=== PATIENT | female | born 1960 | race Caucasian/White ===

== ENCOUNTER 2018-03-21 12:10 | Emergency (ER) | payer BC ==
--- NOTE | 2018-03-21 12:53 | Emergency Department Record ---
History of Present Illness - General Chief Complaint: Chest Pain Stated Complaint: DISCOMPORT LT SIDE /NECK //CHEST Time Seen by Provider: 03/21/18 12:45 Source: Patient Mode of Arrival: Ambulatory Limitations: No limitations - History of Present Illness Initial Comments: The patient is here with L neck, and shoulder pain which started acutely last evening about 14 hours ago at rest. The pain is a sharp aching pain that does radiate to the L jaw and chest. It is worse with deep breaths but there is no SOB, TORSTEN, or sweating with the pain. She has had L jaw pain off and on for some time and does have a dentist appointment for it tomorrow. She states the pain is not worse with exertion or bending or twisting and she has no hx of similar issues. The patient has no cardiac risk factors and no recent travel or leg pain. MD Complaint: Other Onset/Timin -: Hour(s) Onset: During rest Pain Location: Other Pain Radiation: Back Severity scale (1-10): 7 Quality: Sharp Improves With: Rest Worsens With: Inspiration Treatments Prior to Arrival: Other Treatment Prior to Arrival Comment:: Ibuprofen at 0200 this AM - Related Data Home Medications Medication Instructions Recorded Confirmed Last Taken No Home Med [NO HOME MEDS] 03/21/18 03/21/18 Unknown Allergies Allergy/AdvReac Type Severity Reaction Status Date / Time No Known Drug Allergies Allergy Verified 03/21/18 12:17 Travel Screening - Travel/Exposure Within Last 30 Days Have you traveled within the last 30 days?: No - Travel/Exposure Within Last Year Have you traveled outside the [place] in the last year?: Yes Location Detail:: [place] - Additonal Travel Details Have you been exposed to anyone with a communicable illness?: No - Travel Symptoms Symptom Screening: None Review of Systems Constitutional: Denies: Chills, Fever Eyes: Denies: Eye discharge ENT: Denies: Congestion Respiratory: Denies: Cough, Dyspnea Past Medical History - SOCIAL HISTORY Smoking Status: Never smoker Alcohol Use: Occasional Drug Use: None - RESPIRATORY Hx Respiratory Disorders: No - CARDIOVASCULAR Hx Cardio Disorders: No - NEURO Hx Neuro Disorders: No - GI Hx GI Disorders: No - Hx Genitourinary Disorders: No - ENDOCRINE Hx Endocrine Disorders: No - MUSCULOSKELETAL Hx Musculoskeletal Disorders: No - PSYCH Hx Psych Problems: No - HEMATOLOGY/ONCOLOGY Hx Hematology/Oncology Disorders: No Family Medical History Any Significant Family History?: No Physical Exam - General General Appearance: Alert, Oriented x3, Cooperative, No acute distress - Head Head exam: Atraumatic, Normocephalic, Normal inspection - Eye Eye exam: Normal appearance, PERRL, EOMI - Neck Neck exam: Normal inspection, Full ROM. negative: Tenderness - Respiratory Respiratory exam: Normal lung sounds bilaterally. negative: Chest wall tenderness, Rales, Respiratory distress - Cardiovascular Cardiovascular Exam: Regular rate, Normal rhythm, Normal heart sounds - GI/Abdominal GI/Abdominal exam: Soft, Normal bowel sounds. negative: Tenderness - Extremities Extremities exam: Normal inspection, Full ROM, Normal capillary refill. negative: Calf tenderness, Pedal edema, Tenderness - Neurological Neurological exam: Alert, Normal gait. negative: Abnormal gait, Motor sensory deficit - Psychiatric Psychiatric exam: negative: Anxious, Depressed - Skin Skin exam: negative: Rash Course Vital Signs 03/21/18 12:22 Temperature 98.5 F Pulse Rate 99 H Respiratory 16 Rate Blood Pressure 122/86 Pulse Ox 100 - Reevaluation(s) Reevaluation #1: The patient is doing much better now. Her pain is much improved and she is resting comfortably. I did discuss the plan with her. We will order a chest CT due to the persistent pain. 03/21/18 14:10 Reevaluation #2: The patient is doing very well at this time and only has mild pain. She denies any SOB or TORSTEN. I did explain to her that her workup is all neg here in the ER. Due to no specific cause being found for the pain I did recommend hospital admission to R/O [place] and a EST and cardiac echo. I also explained the risks of leaving which include going home and having an [place], stroke, being disabled and dying. The patient understands and accepts the risks and understands we cannot be held liable for NOT doing the tests. She presently has proper decision making capacity and clearly understands and accepts the risks of leaving. She will be referred to Dr. Mcclain in the Specialty clinic for further testing. 03/21/18 15:58 Medical Decision Making - Data Complexity MDM Data: Labs Ordered and/or Reviewed, X-Ray Ordered and/or Reviewed, EKG Ordered and/or Reviewed - Lab Data Result diagrams: 03/21/18 12:30 03/21/18 12:30 - EKG Data -: EKG Interpreted by Me EKG: No Acute Changes, Normal EKG (RsR' pattern V1-3. Neg for ischemia.) - Radiology Data Radiology results: Report reviewed (CXR: neg Chest CT: Neg for PE or dissection. Mildly ectatic aorta. ) Disposition Disposition: Discharge Clinical Impression: Chest pain, atypical Disposition: Home, Self-Care Condition: (2) Stable Instructions: Chest Pain (ED) Additional Instructions: Please take Tylenol or Motrin for pain and rest. Please see Dr. Mcclain in the Specialty Clinic later this week. Please return to the ER for any worsening symptoms, pain, trouble breathing or fever. Referrals: [facility] Specialty Clinics [Provider Group] Forms: Patient Portal Access Time of Disposition: 15:56 Quality - Quality Measures Quality Measures: N/A - Blood Pressure Screening View Details: Yes Does Patient Have Any of the Following: No Blood Pressure Classification: Normal BP Reading Systolic Measurement: 107 Diastolic Measurement: 72 Screening for High Blood Pressure: < Normal BP, F/U Not Required > [G8783]
[2018-03-21 13:07] LABS: BASO % 0.2 % (0-6); EOS % 0.2 % (0-6); GRAN % 62.5 % (47-80); HEMATOCRIT 40.2 % (35.0-47.0); HEMOGLOBIN 13.1 gm/dl (11.6-16.0); MEAN CELL VOLUME 91.6 fl (81-97); MEAN CORPUSCULAR HEMOGLOBIN 29.8 pg (27-33); MEAN CORPUSCULAR HGB CONC 32.6 g/dl (32-36); MEAN PLATELET VOLUME 9.3 fl (7.4-10.4); MONO % 12.1 % (0-9); PLATELET COUNT 344 K/uL (130-400); RED BLOOD COUNT 4.39 M/uL (3.80-5.40); RED CELL DISTRIBUTION WIDTH 13.6 % (11.5-14.5); WHITE BLOOD COUNT W/O DIFF 10.8 K/uL (4.2-12.2)
[2018-03-21 13:18] LABS: BLOOD UREA NITROGEN 8 mg/dL (6-20); CREATININE 0.5 mg/dL (0.5-0.9); EST GLOMERULAR FILTRATION RATE > 60 mL/min
[2018-03-21] MEDS ORDERED: KETOROLAC 30 MG/ML VIAL IVP ONE (13:18)
[2018-03-21 13:19] LABS: TOTAL PROTEIN 7.3 g/dL (6.6-8.7)
[2018-03-21 13:21] LABS: GLUCOSE,RANDOM 102 mg/dL (74-109)
[2018-03-21 13:23] LABS: ALB/GLOB RATIO 1.7 (1.1-1.8); ALBUMIN 4.6 g/dL (4.0-5.0); ALKALINE PHOSPHATASE 70 U/L (35-104); ALT/SGPT 17 U/L (<33); AST/SGOT 22 U/L (10.0-35.0); CREATINE PHOSPHOKINASE 95 U/L (26-192); PARTIAL THROMBOPLASTIN TIME 27.3 SECONDS (24.5-39.1); PROTHROMBIN TIME (PATIENT) 10.2 SECONDS (9.5-12.1)
[2018-03-21 13:25] LABS: CKMB 2.8 ng/mL (<3.77)
[2018-03-21] MEDS ORDERED: 0.9 % SODIUM CHLORIDE 1,000 ML BAG IV ONE (13:55)
[2018-03-21] MEDS ORDERED: ACETAMINOPHEN 1,000 MG/100 ML BTL IVPB ONE (13:55)
--- NOTE | 2018-03-23 05:52 | RADIOLOGY REPORT ---
DATE: 03/21/2018. EXAM: TWO-VIEW CHEST RADIOGRAPH. HISTORY: Left-sided neck and shoulder pain for greater than one day. TECHNIQUE: PA and lateral views of the chest. COMPARISON: None. FINDINGS: The cardiac silhouette is within normal size limits. The pulmonary vasculature is nondilated. No focal consolidation, pleural effusion, or pneumothorax. IMPRESSION: NO ACUTE LUNG FINDINGS. JOB NUMBER: [id number] MTDD
--- NOTE | 2018-03-23 06:20 | CT ANGIOGRAM REPORT ---
DATE: 03/21/2018. EXAM: CT ANGIOGRAM OF THE CHEST WITH CONTRAST. HISTORY: UPPER CHEST PAIN, DYSPNEA. TECHNIQUE: Routine CT angiographic images of the chest were obtained following the intravenous administration of contrast; amount and type of contrast in the medical record. Also 3D MIP images were obtained for further assessment. COMPARISON: None. FINDINGS: The heart is not enlarged. No pericardial effusion. There is ectasia of the ascending aorta measuring 3.5 x 3.4 cm at the level of the right main pulmonary artery on this non-gated examination. No mediastinal or hilar lymph node enlargement. The aorta enhances normally with contrast. Suboptimal bolus timing with this assessment for small peripheral pulmonary embolus. No large central pulmonary embolus identified. There is mild bibasilar atelectasis. The lungs are without focal consolidation or pleural effusion. The visualized upper abdomen is unremarkable. No acute osseous abnormality. IMPRESSION: 1. SUBOPTIMAL BOLUS TIMING LIMITS ASSESSMENT FOR SMALL PERIPHERAL PULMONARY EMBOLUS. NO LARGE CENTRAL PULMONARY EMBOLUS IDENTIFIED. 2. ASCENDING AORTA ECTASIA. JOB NUMBER: [id number] MTDD
== END 2018-03-21 16:21 | disposition home or self-care (01) ==
LOC: ER 12:10
DX: R07.89 Other chest pain (principal); M54.2 Cervicalgia; R06.00 Dyspnea, unspecified; M25.512 Pain in left shoulder
CPT/HCPCS: 71046; 71275; 80053; 82550; 82553; 84484; 85025; 85379; 85610; 85730; 93005; 93010; 96374; 96375; 99284; J1885; J7030

== ENCOUNTER 2019-03-19 22:52 | Emergency (ER) | payer BC ==
[2019-03-19] MEDS ORDERED: 0.9 % SODIUM CHLORIDE 1000ML 1,000 ML IV ONE (23:00)
--- NOTE | 2019-03-19 23:06 | Emergency Department Record ---
History of Present Illness - General Stated Complaint: FALL Time Seen by Provider: 03/19/19 22:56 Source: Patient, Family Mode of Arrival: Wheelchair Limitations: Altered mental status - History of Present Illness Initial Comments: 58 yo female presents after a fall. She fell on wooden slippery steps. The patient does not recall the event. Her friend that was with her states the she did not witness the actual fall but she saw her at the bottom of 3-4 steps immediately. She did hit her head, side, wrist and hand. She answers questions appropriately but does not have a memory of the event. She is not on blood thinners. No numbness or weakness. No vision changes. No preceding symptoms. The friend states the steps are slippery and several people have slipped on them in the past. MD Complaint: Fall -: Minutes(s) Fall From: Down stairs (#) (3-4) When Fall Occurred: Just prior to arrival Fall Witnessed: No Place Fall Occurred: Home Loss of Consciousness: Unsure Prolonged Down Time?: No Symptoms Prior to Fall: None Location: Head Severity: Moderate Quality: Aching Context: Tripped/slipped Associated Symptoms: Denies - Matt Coma Scale Eye Response: (4) Open spontaneously Motor Response: (6) Obeys commands Verbal Response: (5) Oriented Matt Total: 15 - Related Data Allergies Allergy/AdvReac Type Severity Reaction Status Date / Time No Known Drug Allergies Allergy Unverified 08/11/18 08:14 Review of Systems Constitutional: Denies: Chills, Fever, Malaise Eyes: Denies: Eye discharge, Eye pain, Vision change ENT: Denies: Congestion, Dental pain, Throat pain Respiratory: Denies: Cough, Dyspnea Cardiovascular: Denies: Chest pain, Palpitations, Syncope Endocrine: Denies: Fatigue Gastrointestinal: Denies: Abdominal pain, Diarrhea, Nausea, Vomiting Genitourinary: Denies: Dysuria, Urgency Musculoskeletal: Reports: Arthralgia Skin: Reports: Bruising Neurological: Reports: Confusion. Denies: Abnormal gait, Headache, Numbness, Paresthesias, Seizure, Tingling, Tremors, Vertigo, Weakness Psychiatric: Denies: Anxiety Hematological/Lymphatic: Denies: Easy bleeding, Easy bruising Past Medical History - SOCIAL HISTORY Smoking Status: Never smoker Drug Use: None - RESPIRATORY Hx Respiratory Disorders: No - CARDIOVASCULAR Hx Cardio Disorders: No - NEURO Hx Neuro Disorders: No - GI Hx GI Disorders: No - Hx Genitourinary Disorders: No - ENDOCRINE Hx Endocrine Disorders: No - MUSCULOSKELETAL Hx Musculoskeletal Disorders: No - PSYCH Hx Psych Problems: No - HEMATOLOGY/ONCOLOGY Hx Hematology/Oncology Disorders: No Physical Exam - General General Appearance: Alert, Oriented x3, Cooperative, Other (The patient is in no distress. She is oriented X's 3. She does not recall the fall however.) Limitations: Altered mental status - Head Head exam: negative: Atraumatic, Normal inspection Head exam detail: Abrasion, Contusion Image of Face/Head: 1 - contusion - Eye Eye exam: PERRL, EOMI, Periorbital swelling. negative: Normal appearance, Conj unctival injection, Nystagmus - ENT ENT exam: Normal exam, Mucous membranes moist, Normal orophraynx, TM's normal bilaterally Ear exam: Normal external inspection Nasal Exam: Normal inspection Mouth exam: Normal external inspection Teeth exam: Normal inspection Throat exam: Normal inspection - Neck Neck exam: Normal inspection, Full ROM. negative: Tenderness - Respiratory Respiratory exam: Normal lung sounds bilaterally. negative: Accessory muscle use, Chest wall tenderness, Decreased breath sounds, Prolonged expiratory, Rhonchi, Stridor, Wheezes - Cardiovascular Cardiovascular Exam: Regular rate, Normal rhythm, Normal heart sounds Peripheral Pulses: 2+: Radial (R), Radial (L) - GI/Abdominal GI/Abdominal exam: Soft, Normal bowel sounds, Other (abrasion over the right flank but non tender). negative: Distended, Guarding, Rebound, Rigid, Tend erness - Rectal Rectal exam: Deferred - exam: Deferred - Extremities Extremities exam: Full ROM, Joint swelling, Tenderness. negative: Normal inspection Image of Full Body: 1 - abrasion, soft non tender 2 - tenderness and swelling 4-5 th MCP area, intact skin, full ROM 3 - normal inspection, tender with ROM Image of Hand: 1 - mild bruising, tenderness and swelling 2 - normal inspection, tender to palpation - Back Back exam: Denies: Normal inspection (Lower right lateral flank abrasion), CVA tenderness (R), CVA tenderness (L), Paraspinal tenderness, Tenderness, Vertebral tenderness - Neurological Neurological exam: Alert, CN II-XII intact, Normal gait, Oriented X3. negative: Altered, Motor sensory deficit - Psychiatric Psychiatric exam: Normal affect, Normal mood. negative: Agitated, Anxious - Skin Skin exam: Abrasion Course - Reevaluation(s) Reevaluation #1: The patient is not in any distress She is oriented to person, place and time How[place], given fall distance with possible LOC, no memory of the actual fall or injury a Trauma Activation was initiated. 03/19/19 23:02 03/19/19 23:43 No acute changes on the CBC and CMP The Alcohol was 0.08 03/20/19 00:06 03/20/19 00:24 The XR of the right hand was reviewed. No acute process. STS The XR of the left wrist was reviewed. Distal non displaced radius fracture. No dislocation 03/20/19 00:[address] was reviewed and was negative for acute injury 03/20/19 00:48 The C collar was removed No neck pain The patient denies any significant pain. She is alert and doing well. 03/20/19 00:56 The patient ambulated easily to the restroom without assistance. No pain with ambulation or dizziness. 03/20/19 01:28 The HCT report was reviewed. No acute process. The Left wrist XR was reviewed. Distal mildly compacted radius fracture. She will be splinted and referred to orthopedics The patient feels she is at her baseline. She has not significant pain or comp laints. Her friends and family present agree she is at her baseline. No confusion. No repeating. No abnormal observations by friends and family. Waiting for final CT read on the CAP CT. 03/20/19 01:[address] of the CAP was reviewed. No acute traumatic injury of the chest. Mild right flank STS that corresponds to the small abrasion. The patient is at her baseline. She requests DC home. Her family and friends agree she is at her baseline. I offered observation if anyone had any reservat ions. No concerns were expressed. I feel she is safe in that she is at her baseline and she is not alone. We discussed home care and discussed reasons for immediately return to the ED. Medical Decision Making - Lab Data Result diagrams: 03/19/19 23:05 03/19/19 23:05 Disposition Disposition: Discharge Clinical Impression: Wrist fracture, left Qualifiers: Encounter type: initial encounter Fracture type: closed Qualified Code(s): S62.102A - Fracture of unspecified carpal bone, left wrist, initial encounter for closed fracture Contusion of hand, right Qualifiers: Encounter type: initial encounter Qualified Code(s): S60.221A - Contusion of right hand, initial encounter Forehead contusion Qualifiers: Encounter type: initial encounter Qualified Code(s): S00.83XA - Contusion of other part of head, initial encounter Condition: (1) Good Instructions: Wrist Fracture in Adults (ED) Additional Instructions: Review this ER visit and the tests performed with your family doctor Call your doctor for the next available follow up appointment next week You have been referred to Dr Martino of the orthopedic clinic for the left wrist fracture Use the sling for support and comfort Return if you have any concerns with the splint and its comfort Return to the ER for a recheck immediately if worse, any new concerns or questions Referrals: Jadiel Martino [DOCTOR OF OSTEOPATH] - [facility] Specialty Clinics [Provider Group] Forms: Patient Portal Access Time of Disposition: 01:34 Quality - Quality Measures Quality Measures: N/A, Blunt Head Trauma (>2yr) - Matt Coma Scale [place] Coma Scale: [place] Coma Scale Eye Response: (4) Open spontaneously Motor Response: (6) Obeys commands Verbal Response: (5) Oriented Matt Total: 15 - Blunt Head Trauma - Adult Quality Measure: Measure #415: Utilization of CT for Minor Blunt Head Trauma ICD10 Codes Entered: Yes Was CT ordered: Yes Does Patient Have Any of the Following: No Exclusions Patient Presented Within 24 Hours of Injury: Yes Augusta Score: [address] for Minor Blunt Head Trauma: < CT Done, Appropriate Indication > [G9529] Additional Inclusion Criteria: Within 24hrs (AND) GCS of 15 (AND) CT ordered. [G9530] Indications For CT: Dangerous Mechanism of Injury - Blood Pressure Screening Does Patient Have Any of the Following: No Blood Pressure Classification: Normal BP Reading Systolic Measurement: 102 Diastolic Measurement: 69 Screening for High Blood Pressure: < Normal BP, F/U Not Required > [G8783]
[2019-03-19 23:12] LABS: ABSOLUTE NEUTROPHIL COUNT 2.92; HEMATOCRIT 36.1 % (35.0-47.0); HEMOGLOBIN 11.7 gm/dl (11.6-16.0); MEAN CELL VOLUME 91.6 fl (81-97); MEAN CORPUSCULAR HEMOGLOBIN 29.7 pg (27-33); MEAN CORPUSCULAR HGB CONC 32.4 g/dl (32-36); PLATELET COUNT 320 K/uL (130-400); RED BLOOD COUNT 3.94 M/uL (3.80-5.40); RED CELL DISTRIBUTION WIDTH 13.5 % (11.5-14.5); WHITE BLOOD COUNT W/O DIFF 9.2 K/uL (4.2-12.2)
[2019-03-19 23:20] LABS: BLOOD UREA NITROGEN 15 mg/dL (6-20); CREATININE 0.5 mg/dL (0.5-0.9); EST GLOMERULAR FILTRATION RATE > 60 mL/min
[2019-03-19 23:21] LABS: BILIRUBIN,TOTAL < 0.20 mg/dL (0.2-1.0); TOTAL PROTEIN 7.1 g/dL (6.6-8.7)
[2019-03-19 23:22] LABS: ALCOHOL 0.081 g/dL (0-0.010)
[2019-03-19 23:23] LABS: GLUCOSE,RANDOM 100 mg/dL (74-109)
[2019-03-19 23:24] LABS: PARTIAL THROMBOPLASTIN TIME 23.8 SECONDS (24.5-39.1); PROTHROMBIN TIME (PATIENT) 10.2 SECONDS (9.5-12.1)
[2019-03-19 23:26] LABS: ALB/GLOB RATIO 1.8 (1.1-1.8); ALBUMIN 4.6 g/dL (4.0-5.0); ALKALINE PHOSPHATASE 60 U/L (35-104); ALT/SGPT 20 U/L (<33); AST/SGOT 28 U/L (10.0-35.0)
[2019-03-19 23:35] LABS: ANISOCYTOSIS 1+; PLATELET ESTIMATE NORMAL (NORMAL)
--- NOTE | 2019-03-20 00:37 | RADIOLOGY REPORT ---
EXAMINATION: Right Hand, Minimum Three Views EXAM DATE: 03/20/2019 12:34 AM TECHNIQUE: PA, lateral, and oblique INDICATION: fall, pain swelling right 4-5th finger COMPARISON: None ENCOUNTER: Initial FINDINGS: There is no acute fractures or dislocations. There are moderate to severe degenerative changes noted at the distal interphalangeal joints worst involving the second through fourth digits. IMPRESSION: 1. No acute fractures or dislocations. 2. Degenerative changes involving the distal interphalangeal joints. Dictated by: Ele Luciano MD on 03/20/2019 12:35 AM. .
--- NOTE | 2019-03-20 00:40 | CT SCAN REPORT ---
EXAMINATION: CERVICAL SPINE WO CONTRAST EXAM DATE: 03/20/2019 12:34 AM TECHNIQUE: Without contrast spiral CT images were done from the foramen magnum to the upper thoracic spine. Sagittal and coronal 2-D reformats were made from source images. INDICATION: fall, confusion, hit head. COMPARISON: No similar comparison exam FINDINGS: Normal anatomic alignment of the cervical spine. The craniocervical junction is intact. Vertebral body heights are preserved without evidence of acute fracture. The paravertebral soft tissu es are unremarkable. There are multilevel degenerative changes noted of the cervical spine. IMPRESSION: No evidence of acute fracture or malalignment. Dictated by: Ele Luciano MD on 03/20/2019 12:37 AM. .
[2019-03-20] MEDS ORDERED: ACETAMINOPHEN 500 MG TABLET PO ONE (00:48)
--- NOTE | 2019-03-20 01:25 | RADIOLOGY REPORT ---
EXAMINATION: Left Wrist Complete, Minimum Three Views EXAM DATE: 03/20/2019 12:34 AM TECHNIQUE: PA, lateral, and oblique INDICATION: fall, pain COMPARISON: None ENCOUNTER: Initial FINDINGS: There is a mildly impacted fracture of the distal radius which may have intra-articular extension. No other fractures are seen. There are no dislocations. IMPRESSION: 1. Distal radius fracture, as above. Dictated by: Ele Luciano MD on 03/20/2019 12:36 AM. .
--- NOTE | 2019-03-20 01:25 | CT SCAN REPORT ---
EXAMINATION: CT Head without IV Contrast EXAM DATE: 03/20/2019 12:34 AM TECHNIQUE: Standard protocol CT images of the head were obtained without intravenous contrast. Martínez l and sagittal reconstructed images were created. INDICATION: fall, confusion, hit head fell down 3 stairs hitting right frontal scalp COMPARISON: None HAND DOMINANCE: Unknown. ENCOUNTER: Initial FINDINGS: 1. There is no intracranial mass, midline shift, extraaxial fluid collection or hemorrhage. 2. The ventricles, sulci and cisterns are normal. 3. Mild generalized atrophy the brain. There are no suspicious area of altered attenuation. 4. There is no fracture. 5. Right supraorbital soft tissue swelling. Paranasal sinuses and mastoid air cells are normal. The globes are normal. IMPRESSION: 1. No acute intracranial process. 2. Mild generalized atrophy the brain. Dictated by: Dionicio Reed MD on 03/20/2019 12:35 AM. .
--- NOTE | 2019-03-20 01:29 | CT SCAN REPORT ---
EXAMINATION: CT Chest, Abdomen and Pelvis with IV Contrast TECHNIQUE: CT scanning of the chest, abdomen and pelvis was performed following administration of no nionic intravenous contrast ( 100 mL Omnipaque 300). In addition coronal and sagittal 2-D reformatted images were provided. DATE OF EXAMINATION: 03/19/2019 10:52 PM COMPARISON: CTA chest performed 03/21/2018. CLINICAL INDICATION: 58-year-old female fell down stairs. Confusion and altered mental status. The pa tient reports right hip pain. ENCOUNTER: Initial.. FINDINGS: CT CHEST: Base of neck and axilla: No mass or adenopathy. Mediastinum and ezequiel: There is no mediastinal or hilar adenopathy. There is no mediastinal hematoma. Heart and great vessels: There is borderline cardiomegaly. There is no pericardial effusion. The thor acic aorta enhances normally with no evidence for thoracic aortic injury. The ascending thoracic aort a is slightly ectatic at 3.7 cm in AP diameter. There is no thoracic aortic aneurysm or dissection. T he main pulmonary artery has normal caliber at 24 mm. Lungs: The lungs are clear and well expanded. No airspace disease or consolidation. No pulmonary cont usion. No worrisome pulmonary nodule. Bronchi and upper airways: There is no bronchial wall thickening or bronchiectasis. Pleural space: No pleural effusion. No pneumothorax. Chest wall and musculoskeletal: There is no acute rib fracture. There is no acute fracture of the tho racic spine. There are prominent Schmorl's nodes along the superior and inferior endplates of T9 and T11. No evidence for compression fracture of the thoracic spine. CT ABDOMEN AND PELVIS: Liver: The liver has normal morphology and size with no focal liver lesion. No evidence for liver inj ury. No evidence for cirrhosis. Gallbladder and biliary ductal system: The gallbladder has a normal CT appearance with no calcified g allstones. There is no biliary ductal dilatation. Pancreas: The pancreas is normal. Spleen: The spleen is normal. No evidence for splenic injury. Adrenal glands: Normal. Kidneys, ureters and bladder: There is a subcentimeter cyst along the lateral aspect of the mid left kidney. The kidneys are otherwise normal demonstrating symmetric perfusion and excretion. No evidence for kidney injury. No hydronephrosis. The ureters are normal. The bladder is normal. Stomach and intestines: The stomach and duodenum are normal. The small bowel has normal course and ca liber with no thick-walled or dilated loops. The appendix is normal. The colon is normal. No CT evide nce for bowel injury. Lymph nodes: There is no adenopathy in the abdomen or pelvis. Peritoneal cavity: There is no ascites, hemoperitoneum or free intraperitoneal air. Reproductive organs: Unremarkable. No pelvic mass. Abdominal wall: There is no ventral abdominal wall hernia. There is no abdominal wall hematoma or sig nificant contusive change. Suspect subtle contusive change overlying the lateral right flank. Muscular skeletal: No evidence for lumbar spine fracture. Facet joint arthropathy of the lower lumbar spine is present. There is disc bulging at the L4-L5 and L5-S1 levels. There is no fracture or diast ases of the bony pelvic ring. There is no hip fracture. IMPRESSION: CT CHEST: 1. No acute process involving the chest. Specifically, no evidence for traumatic injury involving the chest. CT ABDOMEN AND PELVIS: 1. No acute process involving the abdomen or pelvis. Specifically, no evidence for visceral injury or hemoperitoneum. 2. There is probably subtle contusive change of the subcutaneous fat along the lateral right flank re gion. No abdominal wall hematoma. No lumbar spine or pelvic fracture. Dictated by: Roger Javier DO on 03/20/2019 1:09 AM. .
== END 2019-03-20 02:20 | disposition home or self-care (01) ==
LOC: ER 22:52
DX: S00.83XA Contusion of other part of head, initial encounter (principal); S52.502A Unspecified fracture of the lower end of left radius, initial encounter for closed fracture; S30.811A Abrasion of abdominal wall, initial encounter; S60.221A Contusion of right hand, initial encounter; M79.644 Pain in right finger(s); R41.82 Altered mental status, unspecified; W10.9XXA Fall (on) (from) unspecified stairs and steps, initial encounter; Y92.009 Unspecified place in unspecified non-institutional (private) residence as the place of occurrence of the external cause
CPT/HCPCS: 70450; 71260; 72125; 74177; 80053; 80320; 85027; 85610; 85730; 99285

== ENCOUNTER 2019-03-23 17:12 | Emergency (ER) | payer BC ==
--- NOTE | 2019-03-23 18:31 | Emergency Department Record ---
History of Present Illness - General Stated Complaint: RECHECK/WRAP TO TIGHT Time Seen by Provider: 03/23/19 18:25 Source: Patient, RN notes reviewed - History of Present Illness Initial comments: hand swollen and she says it is tight and initially whe was seen and splint look good and accidentally sent home before I saw her so called and patient returned for evaluation. Jeff wraps removed and reapplied and she felt much better. - Related Data Allergies Allergy/AdvReac Type Severity Reaction Status Date / Time No Known Drug Allergies Allergy Unverified 08/11/18 08:14 Review of Systems Reviewed: No additional complaints except as noted below Constitutional: Reports: As per HPI. Denies: Chills, Fever, Malaise, Night sweats, Weakness, Weight change Eyes: Reports: As per HPI. Denies: Eye discharge, Eye pain, Photophobia, Vision change ENT: Reports: As per HPI. Denies: Congestion, Dental pain, Ear pain, Epistaxis, Hearing loss, Throat pain Respiratory: Reports: As per HPI. Denies: Cough, Dyspnea, Hemoptysis, Stridor, Wheezes Cardiovascular: Reports: As per HPI. Denies: Arrhythmia, Chest pain, Dyspnea on exertion, Edema, Murmurs, Orthopnea, Palpitations, Paroxysmal nocturnal dyspnea, Rheumatic Fever, Syncope Endocrine: Reports: As per HPI. Denies: Fatigue, Heat or cold intolerance, Polydipsia, Polyuria Gastrointestinal: Reports: As per HPI. Denies: Abdominal pain, Constipation, Diarrhea, Hematemesis, Hematochezia, Melena, Nausea, Vomiting Genitourinary: Reports: As per HPI. Denies: Abnormal menses, Discharge, Dys pareunia, Dysuria, Frequency, Hematuria, Incontinence, Retention, Urgency Musculoskeletal: Reports: As per HPI. Denies: Arthralgia, Back pain, Gout, Joint swelling, Myalgia, Neck pain Skin: Reports: As per HPI. Denies: Bruising, Change in color, Change in hair/nails, Lesions, Pruritus, Rash Neurological: Reports: As per HPI. Denies: Abnormal gait, Confusion, Headache, Numbness, Paresthesias, Seizure, Tingling, Tremors, Vertigo, Weakness Psychiatric: Reports: As per HPI. Denies: Anxiety, Auditory hallucinations, Depression, Homicidal thoughts, Suicidal thoughts, Visual hallucinations Hematological/Lymphatic: Reports: As per HPI. Denies: Anemia, Blood Clots, Easy bleeding, Easy bruising, Swollen glands Past Medical History - SOCIAL HISTORY Smoking Status: Never smoker Drug Use: None - RESPIRATORY Hx Respiratory Disorders: No - CARDIOVASCULAR Hx Cardio Disorders: No - NEURO Hx Neuro Disorders: No - GI Hx GI Disorders: No - Hx Genitourinary Disorders: No - ENDOCRINE Hx Endocrine Disorders: No - MUSCULOSKELETAL Hx Musculoskeletal Disorders: No - PSYCH Hx Psych Problems: No - HEMATOLOGY/ONCOLOGY Hx Hematology/Oncology Disorders: No Physical Exam - General General Appearance: Alert, Oriented x3, Cooperative, No acute distress - Head Head exam: Normal inspection - Eye Eye exam: Normal appearance, PERRL Pupils: Normal accommodation - ENT ENT exam: Normal exam, Mucous membranes moist, Normal external ear exam, Normal orophraynx, TM's normal bilaterally Ear exam: Normal external inspection. negative: External canal tenderness Nasal Exam: Normal inspection. negative: Discharge, Sinus tenderness Mouth exam: Normal external inspection, Tongue normal Teeth exam: Normal inspection. negative: Dental caries Throat exam: Normal inspection. negative: Tonsillar erythema, Tonsillar exudate - Neck Neck exam: Normal inspection, Full ROM. negative: Tenderness - Respiratory Respiratory exam: Normal lung sounds bilaterally. negative: Respiratory distress - Cardiovascular Cardiovascular Exam: Regular rate, Normal rhythm, Normal heart sounds - GI/Abdominal GI/Abdominal exam: Soft, Normal bowel sounds. negative: Tenderness - Rectal Rectal exam: Deferred - exam: Deferred - Extremities Extremities exam: Normal inspection, Full ROM, Normal capillary refill. negative: Tenderness - Back Back exam: Reports: Normal inspection, Full ROM. Denies: Muscle spasm, Rash noted, Tenderness - Neurological Neurological exam: Alert, Normal gait, Oriented X3, Reflexes normal - Psychiatric Psychiatric exam: Normal affect, Normal mood - Skin Skin exam: Dry, Intact, Normal color, Warm Course - Reevaluation(s) Reevaluation #1: jeff wraps loosed up and she is feeling better 03/23/19 18:38 Disposition Clinical Impression: Wrist pain Qualifiers: Laterality: right Qualified Code(s): M25.531 - Pain in right wrist Disposition: Home, Self-Care Condition: (1) Good Instructions: Wrist Fracture in Adults (ED) Additional Instructions: follow up with Dr brumfield as scheduled Time of Disposition: 18:41 Quality - Quality Measures Quality Measures: N/A - Blunt Head Trauma - Adult ICD10 Codes Entered: No - Blood Pressure Screening Does Patient Have Any of the Following: No Blood Pressure Classification: Pre-Hypertensive BP Reading Systolic Measurement: 124 Diastolic Measurement: 78 Screening for High Blood Pressure: < Pre-Hypertensive BP, F/U Documented > [[id number]] Pre-Hypertensive Follow-up Interventions: Referral to alternative/primary care provider.
== END 2019-03-23 18:42 | disposition home or self-care (01) ==
LOC: ER 17:12
DX: M25.531 Pain in right wrist (principal)
CPT/HCPCS: 99281